=== PATIENT | female | born 1995 | race African-American/Black ===

== ENCOUNTER 2024-12-04 01:01 | Emergency (ER) | payer MEDICAID, OTHER ==
[~2024-12-04] VITALS: Ht 162.6 cm; Wt 44.0 kg
[2024-12-04 01:32] VITALS: O2SAT 100
[2024-12-04] MEDS ORDERED: IBUP-1455 MT (02:16)
[2024-12-04 02:20] VITALS: TEMP 36.8; O2SAT 100
[2024-12-04 02:22] VITALS: BP 106/72; PULSE 73; RESP 14
[2024-12-04] MEDS: IBUPROFEN 600MG TABLET PO ONE (02:22)
== END 2024-12-04 02:59 | disposition home or self-care (01) ==
LOC: EDBD 01:01 → ER 01:01
DX: S16.1XXA Strain of muscle, fascia and tendon at neck level, initial encounter (principal); V43.52XA Car driver injured in collision with other type car in traffic accident, initial encounter; Y93.89 Activity, other specified; Y92.89 Other specified places as the place of occurrence of the external cause; Y99.8 Other external cause status
CPT/HCPCS: 99282